=== PATIENT | male | born 1965 | race Caucasian/White ===

== ENCOUNTER 2016-04-14 09:33 | Emergency (ER) | payer OTHER ==
[~2016-04-14] VITALS: Ht 172.7 cm; Wt 78.5 kg
[~2016-04-14 09:33] MED LIST: AMOXICILLIN500 M3 PO; AMOXICILLIN500 MG PO; ATIVAN0.5 MG PO; BACLOFEN10 M1 PO; CELEXA40 MG PO; CHANTIX 1 MG1 MG PO; CITALOPRAM20 MG PO; CLONAZEPAM0.5 M2 PO; CLONAZEPAM0.5 MG PO; CYCLOBENZAPRINE10 M1 PO; DULOXETINE HCL60 MG PO; ENDOCET 325 MG-1 TA1 PO; FLEXERIL PO; FLEXERIL10 MG PO; FLONASE ALLERG9.9 ML NAS; HYDROCODONE/ACE1 TA1 PO; HYDROCODONE/APA1 TA1 PO; IBUPROFEN200 M3 PO; IBUPROFEN800 M1 PO; KETOCONAZOLE 2%30 GM TOP; LIPITOR20 M2 PO; MEDROL4 M2 PO; METOPROLOL SUCC25 M1 PO; MOTRIN800 MG PO; NASONEX0.05 MG/Ac NAS; NASONEX17 GM NASB; NORCO 325 MG-51 TAB PO; NORCO 5-325 TA1 EACH PO; OMEPRAZOLE40 MG PO; OXYCODONE HCL5 M1 PO; OXYCODONE5 M1 PO; PERCOCET 5-3251 EACH PO; PREDNICOT10 MG PO; RANITIDINE HYD150 MG PO; TRAMADOL50 MG PO; TYLENOL WITH C1 EACH PO; VICODIN 300 MG-1 TAB PO; VICODIN 5-3001 EACH PO; VICODIN5-300 PO; VISTARIL50 MG PO; WARFARIN SODIUM5 M1 PO; ZITHROMAX Z-PA250 M1 PO
[2016-04-14 09:36] VITALS: BP 125/83
--- NOTE | 2016-04-14 09:49 | ED THROAT/DENTAL COMPLAINT ---
History of Present Illness General Chief Complaint: Sore Throat, Dental Pain Stated Complaint: ? GUM INFECTION Source: patient, old records Exam Limitations: no limitations Vital Signs & Intake/Output Vital Signs & Intake/Output Vital Signs Date Time Temp Pulse Resp B/P Pulse O2 O2 Flow FiO2 Ox Delivery Rate 04/14 0936 97.6 96 18 125/83 98 Room Air Allergies Coded Allergies: tramadol (JITTERY 12/11/15) Reconcile Medications Amoxicillin 500 MG TABLET 1 TAB PO BID TOOTH PAIN Amoxicillin/Potassium Clav (Augmentin 875-125 Tablet) 875 MG-125 MG TABLET 1 TAB PO BID dental Atorvastatin Calcium (Lipitor) 20 MG TABLET 20 MG PO AT BEDTIME CHOLOSTEROL ( Reported) Clonazepam 0.5 MG TAB 1 TAB PO BID ANXIETY (Reported) Cyclobenzaprine HCl 10 MG TABLET 1 TAB PO TID PRN PAIN (Reported) Cyclobenzaprine HCl 10 MG TABLET 1 TAB PO TID PRN SPASM Duloxetine HCl 60 MG CAPSULE.DR 1 CAP PO DAILY DEPRESSION (Reported) Methylprednisolone. (Medrol) 4 MG TAB.DS.PK 1 DP PO AD BACK PAIN 6 on day 1 then reduce by one tablet daily until gone Metoprolol Succinate 25 MG TAB 1 TAB PO TID HEART (Reported) Mometasone Furoate (Nasonex) 50 MCG SPRAY.PUMP 2 SPRAY NASB DAILY ALLERGIES ( Reported) Oxycodone HCl/Acetaminophen (Percocet 5-325 MG Tablet) 5 MG-325 MG TABLET 1 TAB PO TID PRN pain Warfarin Sodium 5 MG TABLET 0.5 TAB PO 1700 BLOOD THINNER (Reported) Triage Note: 50 Y/O MALE C/O DENTAL PAIN AND ? GUM INFECTION. STATES HE IS UNABLE TO SEE HIS DENTIST UNTIL NEXT WEEK, Triage Nurses Notes Reviewed? yes Onset: Abrupt Duration: day(s): (2), constant Timing: recent history Injury Environment: home Severity: moderate Severity Numbers: 6 Modifying Factors: Worsens With: eating. Associated Symptoms: denies HPI: 50-year-old male presents to emergency room complaining of left upper dental pain for the past 2 days he states he had history of similar symptoms in the past that resolved with antibiotics. He states he is scheduled to see a dentist next week. The pain is worse with palpation, he has been taking Tylenol Motrin without improvement. The pain is radiating into his left upper cheek. He denies any facial swelling or difficulty breathing or difficulty swallowing. No fever no chills There are no other modifying factors or associated symptoms otherwise. (LUIS MANUEL BRO) Past History Travel History Traveled to [place] past 21 day No Medical History Any Pertinent Medical History? 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 No (LUIS MANUEL BRO) Review of Systems Review of Systems Constitutional: Reports: see HPI. All Other Systems: Reviewed and Negative Comments Review of systems: See HPI, All other systems negative. Constitutional, no chills no fever, no malaise HEENT: No visual changes no sore throat no congestion, Cardiovascular: No chest pain , no palpitation , Skin, no rashes, no change in skin Respiratory: No dyspnea no cough no sputum GI: No nausea no vomiting, no diarrhea : No dysuria Muscle skeletal: No joint pain, no back pain, no neck pain, Neurologic: no headache Psych: No stress Heme/endocrine: No bruising no bleeding Immunology: No lymphadenopathy, (LUIS MANUEL BRO) Physical Exam Physical Exam General Appearance: well developed/nourished, alert, awake Mouth/Throat: normal mouth inspection Comments: Well-developed well-nourished patient in no apparent distress. Head/Face: Atraumatic, no maxillary/frontal sinus tenderness, no facial swelling Eyes: PERRL, EOMI, no conjunctival injection Ear:External auditory canals clear Nose: atraumatic.Normal inspection Throat: Moist mucous membranes.Pharynx normal. No pharyngeal erythema/exudate seen. No stridor/drooling or assymetry. No swelling or edema. Neck: Supple, no lymphadenopathy, FROM Back: FROM, Nontender Cardiovascular: Regular rate and rhythms no murmurs Respiratory: No respiratory distress. Patient speaking in full complete sentences. Breath sounds clear to auscultation bilaterally: NO W/R/R Extremities: full range of motion Neuro: Alert and oriented x3 Skin: Warm & dry;No appreciable rash on exposed skin Psych: Mood affect normal, normal memory normal judgment. Core Measures ACS in differential dx? No Severe Sepsis Present: No Septic Shock Present: No (LUIS MANUEL BRO) Progress Differential Diagnosis: carious tooth, epiglottitis, odontogenic abscess, nazanin- tonsillar abscess, stomatitis/gingivitis, tooth fracture Plan of Care: Prescription for Augmentin providing a follow-up with dental clinic list provided he feels comfortable plan cleared for discharge (LUIS MANUEL BRO) Departure Departure Time of Disposition: 953 Disposition: HOME OR SELF CARE Condition: Stable Clinical Impression Primary Impression: Toothache Referrals: ERIKA GRAJEDA,KRYSTYNA Carter (PCP/Family) Additional Instructions: Augmentin as directed Percocet for breakthrough pain use caution as this is a narcotic no driving or drinking alcohol while taking. These prescriptions were sent to the [place] pharmacy follow-up with your dentist next week Departure Forms: Customer Survey General Discharge Information Prescriptions: Current Visit Scripts Oxycodone HCl/Acetaminophen (Percocet 5-325 MG Tablet) 1 TAB PO TID PRN pain #10 TAB Amoxicillin/Potassium Clav (Augmentin 875-125 Tablet) 1 TAB PO BID #14 TAB (LUIS MANUEL BRO) PA/WRAPAROUND FACILITATOR Co-Sign Statement Statement: ED Attending supervision documentation- [] I saw and evaluated the patient. I have also reviewed all the pertinent lab results and diagnostic results. I agree with the findings and the plan of care as documented in the PA's/WRAPAROUND FACILITATOR's documentation. [X] I have reviewed the ED Record and agree with the PA's/WRAPAROUND FACILITATOR's documentation. [] Additions or exceptions (if any) to the PAs/WRAPAROUND FACILITATOR's note and plan are summarized below: [] (LULU PETER DO)
[2016-04-14] MEDS ORDERED: AUGMENTIN 875-1 EACH PO (09:55)
[2016-04-14] MEDS ORDERED: PERCOCET 5-3251 EACH PO (09:55)
== END 2016-04-14 10:00 ==
LOC: ERH 09:33
DX: K08.89 Other specified disorders of teeth and supporting structures (principal)

== ENCOUNTER 2016-05-12 14:15 | Emergency (ER) | payer OTHER ==
[~2016-05-12] VITALS: Ht 172.7 cm; Wt 78.0 kg
[~2016-05-12 14:15] MED LIST changes: +AUGMENTIN 875-1 EACH PO
[2016-05-12] MEDS ORDERED: PERCOCET 5-3251 EACH PO (14:50)
[2016-05-12] MEDS ORDERED: AMOXICILLIN500 M3 PO (14:50)
--- NOTE | 2016-05-12 14:51 | ED THROAT/DENTAL COMPLAINT ---
History of Present Illness General Chief Complaint: Sore Throat, Dental Pain Stated Complaint: DENTAL PAIN Source: patient Exam Limitations: no limitations Vital Signs & Intake/Output Vital Signs & Intake/Output Vital Signs Date Time Temp Pulse Resp B/P Pulse O2 O2 Flow FiO2 Ox Delivery Rate 05/12 1424 Room Air Room Air Allergies Coded Allergies: tramadol (JITTERY 12/11/15) Reconcile Medications Amoxicillin 500 MG TABLET 1 TAB PO BID TOOTH PAIN Amoxicillin 500 MG TABLET 1 TAB PO BID TOOTH PAIN Amoxicillin/Potassium Clav (Augmentin 875-125 Tablet) 875 MG-125 MG TABLET 1 TAB PO BID dental Atorvastatin Calcium (Lipitor) 20 MG TABLET 20 MG PO AT BEDTIME CHOLOSTEROL ( Reported) Clonazepam 0.5 MG TAB 1 TAB PO BID ANXIETY (Reported) Cyclobenzaprine HCl 10 MG TABLET 1 TAB PO TID PRN PAIN (Reported) Cyclobenzaprine HCl 10 MG TABLET 1 TAB PO TID PRN SPASM Duloxetine HCl 60 MG CAPSULE.DR 1 CAP PO DAILY DEPRESSION (Reported) Methylprednisolone. (Medrol) 4 MG TAB.DS.PK 1 DP PO AD BACK PAIN 6 on day 1 then reduce by one tablet daily until gone Metoprolol Succinate 25 MG TAB 1 TAB PO TID HEART (Reported) Mometasone Furoate (Nasonex) 50 MCG SPRAY.PUMP 2 SPRAY NASB DAILY ALLERGIES ( Reported) Oxycodone HCl/Acetaminophen (Percocet 5-325 MG Tablet) 5 MG-325 MG TABLET 1-2 TAB PO BID PAIN Oxycodone HCl/Acetaminophen (Percocet 5-325 MG Tablet) 5 MG-325 MG TABLET 1 TAB PO TID PRN pain Warfarin Sodium 5 MG TABLET 0.5 TAB PO 1700 BLOOD THINNER (Reported) Triage Note: PT TO ED WITH C/O "I'M HAVING PROBLEMS WITH MY DENTAL CROWN, LAST TIME THEY GAVE ME ANTIBIOTICS AND IT WENT AWAY". Triage Nurses Notes Reviewed? yes Onset: Abrupt Duration: day(s):, continues in ED Timing: recent history Injury Environment: home No Modifying Factors: none HPI: 50-year-old male comes into emergency room with complaints of left upper dental pain has been going on for the past few days. Patient has been having dental pain issues intermittently for many weeks. Sharp throbbing pain. Continuous. Nonradiating. Denies any fever chills. Denies any other associated symptoms. (APOLLO MENDENHALL) Past History Travel History Traveled to [place] past 21 day No Medical History Any Pertinent Medical History? 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 No (APOLLO MENDENHALL) Review of Systems Review of Systems Constitutional: Reports: no symptoms. EENTM: Reports: see HPI. Respiratory: Reports: no symptoms. Cardiovascular: Reports: no symptoms. GI: Reports: no symptoms. Genitourinary: Reports: no symptoms. Musculoskeletal: Reports: no symptoms. Skin: Reports: no symptoms. Neurological/Psychological: Reports: no symptoms. Hematologic/Endocrine: Reports: no symptoms. Immunologic/Allergic: Reports: no symptoms. All Other Systems: Reviewed and Negative (APOLLO MENDENHALL) Physical Exam Physical Exam General Appearance: well developed/nourished, no apparent distress, alert Head: atraumatic, normal appearance Eyes: Bilateral: normal appearance, EOMI. Ears: Bilateral: canal normal. Nose: normal inspection Mouth/Throat: normal mouth inspection, pharynx normal, dental tenderness Neck: normal inspection, full range of motion Cardiovascular/Respiratory: normal breath sounds, regular rate/rhythm, no respiratory distress Back: normal inspection Neurologic/Psych: awake, alert, oriented x 3, normal gait, normal mood/affect Skin: intact, normal color Core Measures ACS in differential dx? No Severe Sepsis Present: No Septic Shock Present: No (APOLLO MENDENHALL) Progress Differential Diagnosis: aspirated tooth, carious tooth, epiglottitis, Ludwigs angina, meningitis, odontogenic abscess, nazanin-tonsillar abscess, pharyngeal for. body, stomatitis/gingivitis, strep pharyngitis, tooth fracture Plan of Care: 05/12/2016 4:05:25 PM Patient clinically looks well. Nontoxic-appearing. In no apparent distress. No evidence of dental abscess. Follow-up with dentist. Return if any other concerns. (APOLLO MENDENHALL) Departure Departure Disposition: HOME OR SELF CARE Condition: Stable Clinical Impression Primary Impression: Odontalgia Referrals: ERIKA GRAJEDA,KRYSTYNA Carter (PCP/Family) Additional Instructions: Take Percocet and amoxicillin as prescribed. Follow-up with dentist. Return if any concerns worsening symptoms. Have INR rechecked in 3-5 days after being on amoxicillin. Please go over all results of today's visit with your primary care doctor. Contact your primary care doctor to let them know you were here in the emergency room. There may be nonspecific findings which may not be related to your visit today here in the emergency room but may require further evaluation and chronic monitoring by your primary care doctor. If you had a laceration today the chance of foreign body always remains. You should follow-up with your primary care doctor for recheck in 3-5 days for a wound check. If you had an x-ray done there is a chance that a fracture could have been missed on initial read and you should follow-up with your primary care doctor for repeat x-rays if symptoms persist. If your blood pressure was elevated here in the emergency room please have rechecked by her primary care doctor within the next 48 hours by your primary care doctor. If you were prescribed a narcotic here in the emergency room or any type of controlled substances you're not allowed to drive while taking this medication or operate any type of heavy machinery. Narcotics can make you feel lightheaded dizziness nausea and can cause constipation. You may need to warehouse order picker a stool softener. Thank you for choosing [facility] emergency room. Please return to the emergency room immediately if you have any other concerns worsening of symptoms. Departure Forms: Customer Survey General Discharge Information Prescriptions: Current Visit Scripts Amoxicillin 1 TAB PO BID #20 TAB Oxycodone HCl/Acetaminophen (Percocet 5-325 MG Tablet) 1-2 TAB PO BID #10 TAB (APOLLO MENDENHALL) PA/BOAT ENGINES INSTALLER Co-Sign Statement Statement: ED Attending supervision documentation- [] I saw and evaluated the patient. I have also reviewed all the pertinent lab results and diagnostic results. I agree with the findings and the plan of care as documented in the PA's/BOAT ENGINES INSTALLER's documentation. [X] I have reviewed the ED Record and agree with the PA's/BOAT ENGINES INSTALLER's documentation. [] Additions or exceptions (if any) to the PAs/BOAT ENGINES INSTALLER's note and plan are summarized below: [] (LULU PETER DO)
== END 2016-05-12 15:04 ==
LOC: ERH 14:15
DX: K08.89 Other specified disorders of teeth and supporting structures (principal)

== ENCOUNTER 2016-05-24 09:25 | Emergency (ER) | payer OTHER ==
[~2016-05-24] VITALS: Ht 172.7 cm; Wt 78.5 kg
[2016-05-24 09:36] VITALS: BP 131/88
--- NOTE | 2016-05-24 09:44 | ED THROAT/DENTAL COMPLAINT ---
History of Present Illness General Chief Complaint: Sore Throat, Dental Pain Stated Complaint: REQ PAIN MED FOR TEETH Source: patient Exam Limitations: no limitations Vital Signs & Intake/Output Vital Signs & Intake/Output Vital Signs Date Time Temp Pulse Resp B/P Pulse O2 O2 Flow FiO2 Ox Delivery Rate 05/24 0936 98.2 96 20 131/88 95 Room Air Allergies Coded Allergies: tramadol (JITTERY 12/11/15) Reconcile Medications Atorvastatin Calcium (Lipitor) 20 MG TABLET 1 TAB PO DAILY CHOLESTEROL ( Reported) Clonazepam 0.5 MG TABLET 1 TAB PO BID ANXIETY (Reported) Cyclobenzaprine HCl 10 MG TABLET 1 TAB PO TID PRN SPASM Duloxetine HCl 60 MG CAPSULE.DR 1 CAP PO DAILY DEPRESSION (Reported) Ketorolac Tromethamine 10 MG TABLET 1 TAB PO TID PRN PAIN Metoprolol Succinate 25 MG TAB 1 TAB PO TID HEART (Reported) Mometasone Furoate (Nasonex) 50 MCG SPRAY.PUMP 2 SPRAY NASB DAILY ALLERGIES ( Reported) Oxycodone HCl/Acetaminophen (Percocet 5-325 MG Tablet) 5 MG-325 MG TABLET 1-2 TAB PO BID PAIN Warfarin Sodium 5 MG TABLET 0.5 TAB PO 1700 BLOOD THINNER (Reported) Triage Note: PT C/O DENTAL PAIN. DOESN'T HAVE APPT UNTIL June Triage Nurses Notes Reviewed? yes Onset: Gradual Duration: constant Timing: remote history Severity: severe Severity Numbers: 7 HPI: Patient is a 50-year-old male with a past medical history of chronic pain and chronic dental pain where patient was evaluated last week for similar complaints in which she was prescribed amoxicillin and pain medication narcotics and patient presents again to the emergency room for similar complaints and requests a pain medications Patient states that he has a follow-up appointment with an oral surgeon and 2 weeks. Patient denies any new onset of fractures or etiology of NEW symptoms denies any fevers gum swelling and is otherwise without complaints. (LUIS MANUEL ROPER) Past History Travel History Traveled to [place] past 21 day No Medical History Any Pertinent Medical History? 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 No (LUIS MANUEL ROPER) Review of Systems Review of Systems Constitutional: Reports: no symptoms. EENTM: Reports: see HPI, tooth pain. Respiratory: Reports: no symptoms. Cardiovascular: Reports: no symptoms. GI: Reports: no symptoms. Genitourinary: Reports: no symptoms. Musculoskeletal: Reports: no symptoms. Skin: Reports: no symptoms. Neurological/Psychological: Reports: no symptoms. Hematologic/Endocrine: Reports: no symptoms. Immunologic/Allergic: Reports: no symptoms. All Other Systems: Reviewed and Negative (LUIS MANUEL ROPER) Physical Exam Physical Exam General Appearance: no apparent distress, alert Head: atraumatic Eyes: Bilateral: normal appearance, PERRL. Ears: Bilateral: canal normal, Tympanic normal. Nose: normal inspection Mouth/Throat: normal mouth inspection, pharynx normal, dental tenderness Neck: normal inspection, supple Back: normal inspection Neurologic/Psych: no motor/sensory deficits, awake Skin: intact, normal color Diagram Dental: 1) Normal inspection dental tenderness noted no surrounding gum swelling and no surrounding abscess Core Measures ACS in differential dx? No Severe Sepsis Present: No Septic Shock Present: No (LUIS MANUEL ROPER) Progress Differential Diagnosis: aspirated tooth, carious tooth, epiglottitis, Ludwigs angina, meningitis, odontogenic abscess, nazanin-tonsillar abscess, pharyngeal for. body, stomatitis/gingivitis, strep pharyngitis, tooth fracture Plan of Care: Current Medications Sig/Derick Start time Last Medication Dose Stop Time Status Admin Ketorolac 30 MG ONCE ONE 05/24 1000 UNVr Tromethamine 05/24 1001 (Toradol) Patient on physical exam findings showed no signs of peritonsillar abscess, abscess Patient was noted to have 2 narcotic prescriptions in the last 10 days in which patient was offered ketorolac Patient was strongly advised to follow-up with his oral surgeon however was given other sources for follow-up. No concerns of infection at this time (LUIS MANUEL ROPER) Departure Departure Disposition: HOME OR SELF CARE Condition: Stable Clinical Impression Primary Impression: Pain, dental Referrals: ERIKA GRAJEDA,KRYSTYNA Carter (PCP/Family) Additional Instructions: As discussed follow-up with your scheduled dental appointment as directed. Begin the prescription of ketorolac for pain and inflammation. Continue home medications. If symptoms worsen return to emergency room. Prescription is waiting at [place] pharmacy Departure Forms: Customer Survey General Discharge Information Prescriptions: Current Visit Scripts Ketorolac Tromethamine 1 TAB PO TID PRN PAIN #20 TAB (JUSTEN KIRK,LUIS MANUEL) PA/SHIP YARD ELECTRICAL PERSON Co-Sign Statement Statement: ED Attending supervision documentation- [] I saw and evaluated the patient. I have also reviewed all the pertinent lab results and diagnostic results. I agree with the findings and the plan of care as documented in the PA's/SHIP YARD ELECTRICAL PERSON's documentation. x I have reviewed the ED Record and agree with the PA's/SHIP YARD ELECTRICAL PERSON's documentation. [] Additions or exceptions (if any) to the PAs/SHIP YARD ELECTRICAL PERSON's note and plan are summarized below: [] (OKSANA GRAJEDA,TIO)
[2016-05-24] MEDS ORDERED: KETOROLAC TROME10 M1 PO (09:55)
== END 2016-05-24 09:55 ==
LOC: ERH 09:25
DX: K08.89 Other specified disorders of teeth and supporting structures (principal)
CPT/HCPCS: 96372; J1885

== ENCOUNTER 2016-06-14 10:32 | Emergency (ER) | payer OTHER ==
[~2016-06-14] VITALS: Ht 172.7 cm; Wt 78.0 kg
[~2016-06-14 10:32] MED LIST changes: +KETOROLAC TROME10 M1 PO
[2016-06-14 11:02] VITALS: BP 130/88
--- NOTE | 2016-06-14 12:02 | ED THROAT/DENTAL COMPLAINT ---
History of Present Illness General Chief Complaint: Sore Throat, Dental Pain Stated Complaint: DENTAL PAIN Source: patient, old records Exam Limitations: no limitations Vital Signs & Intake/Output Vital Signs & Intake/Output Vital Signs Date Time Temp Pulse Resp B/P Pulse O2 O2 Flow FiO2 Ox Delivery Rate 06/14 1102 97.4 83 16 130/88 96 Room Air Allergies Coded Allergies: tramadol (JITTERY 12/11/15) Reconcile Medications Atorvastatin Calcium (Lipitor) 20 MG TABLET 1 TAB PO DAILY CHOLESTEROL ( Reported) Clonazepam 0.5 MG TABLET 1 TAB PO BID ANXIETY (Reported) Cyclobenzaprine HCl 10 MG TABLET 1 TAB PO TID PRN SPASM Duloxetine HCl 60 MG CAPSULE.DR 1 CAP PO DAILY DEPRESSION (Reported) Hydrocodone/Acetaminophen ([place] 5-325 Tablet) 5 MG-325 MG TABLET 1 TAB PO Q4- 6 PRN PRN PAIN Hydrocodone/Acetaminophen ([place] 5-325 Tablet) 5 MG-325 MG TABLET 1 TAB PO Q4- 6 PRN PRN PAIN Ketorolac Tromethamine 10 MG TABLET 1 TAB PO TID PRN PAIN Metoprolol Succinate 25 MG TAB 1 TAB PO TID HEART (Reported) Mometasone Furoate (Nasonex) 50 MCG SPRAY.PUMP 2 SPRAY NASB DAILY ALLERGIES ( Reported) Oxycodone HCl/Acetaminophen (Percocet 5-325 MG Tablet) 5 MG-325 MG TABLET 1-2 TAB PO BID PAIN Warfarin Sodium 5 MG TABLET 0.5 TAB PO 1700 BLOOD THINNER (Reported) Triage Note: 50 Y/O MALE C/O DENTAL PAIN X PROCEDURE AT [facility]. STATES HE DID NOT CALL THEM. THINKS "I MESSED IT UP BECAUSE I SMOKE". STATES HE TOOK ADVIL THIS AM WITH NO RELIEF - 2 TABS AT 0500. Triage Nurses Notes Reviewed? yes Onset: Gradual Duration: week(s): (1), constant Timing: recent history Injury Environment: home Severity: moderate Severity Numbers: 6 Modifying Factors: Worsens With: eating. Associated Symptoms: denies HPI: 50-year-old male presents complaining of gradual in onset exacerbation of his chronic left upper dental pain. The patient had a tooth pulled at [place] one week ago at which time he was started on amoxicillin and was prescribed Percocet which he finished. He states that he stopped taking the antibiotics last week. He states since then he has had worsening pain. He denies any difficulty swallowing sore throat fever or chills gingival swelling or discharge from the tooth cavity. Denies any chest pain shortness of breath. Symptoms are worse with palpation and eating better at rest no associated symptoms otherwise no radiation of pain no facial swelling (LUIS MANUEL BRO) Past History Travel History Traveled to [place] past 21 day No Medical History Any Pertinent Medical History? 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 No (LUIS MANUEL BRO) Review of Systems Review of Systems Constitutional: Reports: see HPI. All Other Systems: Reviewed and Negative Comments Review of systems: See HPI, All other systems negative. Constitutional, no chills no fever, no malaise HEENT: No visual changes no sore throat no congestion Cardiovascular: No chest pain , no palpitation Skin, no rashes, no change in skin Respiratory: No dyspnea no cough no sputum GI: No nausea no vomiting, no diarrhea, no bloating/constipation : No dysuria Muscle skeletal: No joint pain, no joint swelling, no back pain Neurologic: No numbness no confusion, no headache Psych: No stress Heme/endocrine: No bruising no bleeding Immunology: No lymphadenopathy (LUIS MANUEL BRO) Physical Exam Physical Exam General Appearance: well developed/nourished, no apparent distress, alert, awake Mouth/Throat: pharynx normal, dental tenderness Comments: Well-developed well-nourished patient in no apparent distress. Head/Face: Atraumatic, no maxillary/frontal sinus tenderness, no facial swelling Eyes: PERRL, EOMI, no conjunctival injection Ear:External auditory canals clear, no erythema, no FB. Nose: atraumatic.Normal inspection Throat: Poor dentition multiple carious teeth, mild gingival swelling left upper no abscess Moist mucous membranes.Pharynx normal. No pharyngeal erythema/ exudate seen. No stridor/drooling or assymetry. No swelling or edema. Neck: Supple, no lymphadenopathy, FROM Back: FROM, Nontender Cardiovascular: Regular rate and rhythms no murmurs Respiratory: No respiratory distress. Patient speaking in full complete sentences. Breath sounds clear to auscultation bilaterally: NO W/R/R Extremities: full range of motion Neuro: Alert and oriented x3 Skin: Warm & dry;No appreciable rash on exposed skin Psych: Mood affect normal, normal memory normal judgment. Core Measures ACS in differential dx? No Severe Sepsis Present: No Septic Shock Present: No (LUIS MANUEL BRO) Progress Differential Diagnosis: Ludwigs angina, odontogenic abscess, nazanin-tonsillar abscess, stomatitis/gingivitis, strep pharyngitis, tooth fracture Plan of Care: Advise follow-up with dentist prescription for [place] provided advised to continue and finish course of amoxicillin as directed smoking cessation discussed the patient at length (LUIS MANUEL BRO) Departure Departure Time of Disposition: 1207 Disposition: HOME OR SELF CARE Condition: Stable Clinical Impression Primary Impression: Chronic dental pain Referrals: ERIKA GRAJEDA,KRYSTYNA Carter (PCP/Family) Additional Instructions: Follow-up with your dentist. Continue taking your antibiotics as prescribed. Vicodin for breakthrough pain this emergency room cannot continue to prescribe you narcotic pain medication this was sent to [place] [facility]. Departure Forms: Customer Survey General Discharge Information Prescriptions: Current Visit Scripts Hydrocodone/Acetaminophen ([place] 5-325 Tablet) 1 TAB PO Q4-6 PRN PRN PAIN #10 TAB Hydrocodone/Acetaminophen ([place] 5-325 Tablet) 1 TAB PO Q4-6 PRN PRN PAIN #10 TAB (LUIS MANUEL BRO) PA/COSMETIC COUNSELOR Co-Sign Statement Statement: ED Attending supervision documentation- [] I saw and evaluated the patient. I have also reviewed all the pertinent lab results and diagnostic results. I agree with the findings and the plan of care as documented in the PA's/COSMETIC COUNSELOR's documentation. x I have reviewed the ED Record and agree with the PA's/COSMETIC COUNSELOR's documentation. [] Additions or exceptions (if any) to the PAs/COSMETIC COUNSELOR's note and plan are summarized below: [] (OKSANA GRAJEDA,TIO)
[2016-06-14] MEDS ORDERED: NORCO 5-325 TA1 EACH PO ×2 (12:08→12:15)
== END 2016-06-14 12:14 ==
LOC: ERH 10:32
DX: G89.29 Other chronic pain (principal); K08.89 Other specified disorders of teeth and supporting structures

== ENCOUNTER 2016-07-10 14:38 | Emergency (ER) | payer OTHER ==
[~2016-07-10] VITALS: Ht 172.7 cm; Wt 78.0 kg
[2016-07-10 14:51] VITALS: BP 129/92
--- NOTE | 2016-07-10 16:44 | ED THROAT/DENTAL COMPLAINT ---
History of Present Illness General Chief Complaint: Sore Throat, Dental Pain Stated Complaint: DENTAL PAIN Source: patient, old records Exam Limitations: no limitations Vital Signs & Intake/Output Vital Signs & Intake/Output Vital Signs Date Time Temp Pulse Resp B/P Pulse O2 O2 Flow FiO2 Ox Delivery Rate 07/10 1451 97.5 91 18 129/92 95 Room Air Allergies Coded Allergies: tramadol (JITTERY 12/11/15) Reconcile Medications Atorvastatin Calcium (Lipitor) 20 MG TABLET 1 TAB PO DAILY CHOLESTEROL ( Reported) Clonazepam 0.5 MG TABLET 1 TAB PO BID ANXIETY (Reported) Cyclobenzaprine HCl 10 MG TABLET 1 TAB PO TID PRN SPASM Duloxetine HCl 60 MG CAPSULE.DR 1 CAP PO DAILY DEPRESSION (Reported) Hydrocodone/Acetaminophen ([place] 5-325 Tablet) 5 MG-325 MG TABLET 1 TAB PO Q4- 6 PRN PRN PAIN Hydrocodone/Acetaminophen ([place] 5-325 Tablet) 5 MG-325 MG TABLET 1 TAB PO Q4- 6 PRN PRN PAIN Hydrocodone/Acetaminophen (Vicodin 5-300 MG Tablet) 5 MG-300 MG TABLET 1 TAB PO Q6 PRN pain Ketorolac Tromethamine 10 MG TABLET 1 TAB PO TID PRN PAIN Metoprolol Succinate 25 MG TAB 1 TAB PO TID HEART (Reported) Mometasone Furoate (Nasonex) 50 MCG SPRAY.PUMP 2 SPRAY NASB DAILY ALLERGIES ( Reported) Oxycodone HCl/Acetaminophen (Percocet 5-325 MG Tablet) 5 MG-325 MG TABLET 1-2 TAB PO BID PAIN Warfarin Sodium 5 MG TABLET 0.5 TAB PO 1700 BLOOD THINNER (Reported) Triage Note: C/O DENTAL PAIN WITH HIS LAST TOOTH, LEFT UPPPER TOOTH PAIN RADIATING TO CHEEK PT WAS SCHEDULED TO HAVE IT TAKEN OUT BUT DUE TO INSURANCE REASONS HE CANNOT. Triage Nurses Notes Reviewed? yes HPI: Patient is for 10-year-old male presents complaining of left upper dental pain. Patient reports that he had a dental procedure last month, scheduled to have a tooth extracted in the area but lost his dental insurance. Pain increasing over the past 2 days. Pain is sharp, currently severe, worse with palpation. Patient denies fevers, chills, facial swelling, difficulty swallowing. (KEN KIRK,IVANNA) Past History Travel History Traveled to [place] past 21 day No Medical History Any Pertinent Medical History? 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 No (IVANNA ANTONIO) Review of Systems Review of Systems Constitutional: Denies: chills, fever. EENTM: Reports: see HPI, tooth pain. Respiratory: Denies: cough, short of breath. GI: Denies: nausea, vomiting. Musculoskeletal: Reports: no symptoms. Skin: Reports: no symptoms. Neurological/Psychological: Reports: headache. Hematologic/Endocrine: Reports: no symptoms. Immunologic/Allergic: Reports: no symptoms. (IVANNA ANTONIO) Physical Exam Physical Exam General Appearance: well developed/nourished, alert, awake Head: atraumatic, normal appearance Eyes: Bilateral: normal appearance, PERRL, EOMI. Nose: normal inspection Mouth/Throat: pharynx normal, see diagram Neck: normal inspection, supple, full range of motion Cardiovascular/Respiratory: no respiratory distress Back: normal inspection, normal range of motion Neurologic/Psych: awake, alert, oriented x 3, normal gait, normal mood/affect Skin: intact, normal color, warm/dry Diagram Dental: 1) previous dental extraction. Mild tenderness to the area. no gingival erythema or swelling. Core Measures ACS in differential dx? No Severe Sepsis Present: No Septic Shock Present: No (IVANNA ANTONIO) Progress Differential Diagnosis: carious tooth, odontogenic abscess, tooth fracture Plan of Care: No signs of dental abscess. Previous records reviewed. I discussed with the patient that we cannot continue to prescribe opiate pain medications from the emergency department for him. A short course of pain medication was prescribed and a list of dental clinics provided. (IVANNA ANTONIO) Departure Departure Time of Disposition: 1651 Disposition: HOME OR SELF CARE Condition: Stable Clinical Impression Primary Impression: Pain, dental Referrals: ERIKA GRAJEDA,KRYSTYNA Carter (PCP/Family) Additional Instructions: Follow up with one of the dental clinics listed in your discharge paperwork. Call tomorrow for appointment. Return to the ER if facial swelling, fevers or worsening of symptoms. Departure Forms: Customer Survey General Discharge Information Prescriptions: Current Visit Scripts Hydrocodone/Acetaminophen (Vicodin 5-300 MG Tablet) 1 TAB PO Q6 PRN pain #10 TAB (IVANNA ANTONIO) PA/WEAVING SUPERVISOR Co-Sign Statement Statement: ED Attending supervision documentation- [] I saw and evaluated the patient. I have also reviewed all the pertinent lab results and diagnostic results. I agree with the findings and the plan of care as documented in the PA's/WEAVING SUPERVISOR's documentation. [X] I have reviewed the ED Record and agree with the PA's/WEAVING SUPERVISOR's documentation. [] Additions or exceptions (if any) to the PAs/WEAVING SUPERVISOR's note and plan are summarized below: [] (LULU PETER DO
[2016-07-10] MEDS ORDERED: VICODIN 5-3001 EACH PO (16:54)
== END 2016-07-10 17:00 ==
LOC: ERH 14:38
DX: K08.89 Other specified disorders of teeth and supporting structures (principal)

== ENCOUNTER 2016-09-23 20:52 | Emergency (ER) | payer OTHER ==
--- NOTE | 2016-09-23 21:21 | ED CARDIAC/CP/PALPITATIONS ---
History of Present Illness General Chief Complaint: General Adult Stated Complaint: PT HAS PAIN AROUND HIS SURGEY PICKING UP BAGS Source: patient, old records Exam Limitations: no limitations Vital Signs & Intake/Output Vital Signs & Intake/Output Vital Signs Date Time Temp Pulse Resp B/P B/P Pulse O2 O2 Flow FiO2 Mean Ox Delivery Rate 09/23 2307 97.9 83 16 136/80 97 Room Air 09/239 97.0 84 22 126/80 98 Room Air ED Intake and Output 09/24 0000 09/23 1200 Intake Total Output Total Balance Patient 160 lb Weight Allergies Coded Allergies: tramadol (JITTERY 12/11/15) Reconcile Medications Atorvastatin Calcium (Lipitor) 20 MG TABLET 1 TAB PO DAILY CHOLESTEROL ( Reported) Baclofen 10 MG TABLET 1 TAB PO TIDPRN PRN muscle spasm/strain Clonazepam 0.5 MG TABLET 1 TAB PO BID ANXIETY (Reported) Cyclobenzaprine HCl 10 MG TABLET 1 TAB PO TID PRN SPASM Duloxetine HCl 60 MG CAPSULE.DR 1 CAP PO DAILY DEPRESSION (Reported) Hydrocodone/Acetaminophen ([place] 5-325 Tablet) 5 MG-325 MG TABLET 1 TAB PO Q4- 6 PRN PRN PAIN Hydrocodone/Acetaminophen ([place] 5-325 Tablet) 5 MG-325 MG TABLET 1 TAB PO Q4- 6 PRN PRN PAIN Hydrocodone/Acetaminophen (Vicodin 5-300 MG Tablet) 5 MG-300 MG TABLET 1 TAB PO Q6 PRN pain Ketorolac Tromethamine 10 MG TABLET 1 TAB PO TID PRN PAIN Metoprolol Succinate 25 MG TAB 1 TAB PO TID HEART (Reported) Mometasone Furoate (Nasonex) 50 MCG SPRAY.PUMP 2 SPRAY NASB DAILY ALLERGIES ( Reported) Oxycodone HCl/Acetaminophen (Percocet 5-325 MG Tablet) 5 MG-325 MG TABLET 1-2 TAB PO BID PAIN Oxycodone HCl/Acetaminophen (Percocet 5-325 MG Tablet) 5 MG-325 MG TABLET 1-2 TAB PO 4 TIMES/DAY PRN pain Warfarin Sodium 5 MG TABLET 0.5 TAB PO 1700 BLOOD THINNER (Reported) Core Measure Meds Pre-Hospital coumadin Triage Note: PER PT HAD OPEN HEART IN August PAIN ACROSS CHEST NOT DEEP FEELS MUSCULAR BUT LIFTED SOME BAGS AND HAS HAD PAIN SINCE. Triage Nurses Notes Reviewed? yes Onset: 3 days Duration: day(s):, constant, continues in ED Timing: recent history Quality/Severity: moderate, aching Location: central Radiation: no radiation Activities at Onset: activity Prior Chest Pain/Card Workup: cardiac cath, echocardiography, stress test Modifying Factors: Worsens With: coughing, exercise, movement, palpation. Nitro Today/Relief: no nitro taken today Aspirin Today: no aspirin today HPI: Several days prior to admission patient has had increasing upper chest pain described as sharp occurring with lifting movement of upper extremities nonradiating. 3 days prior to admission he reports having cardiology evaluation with echocardiogram that was normal. He denies fever chills nausea vomiting diarrhea abdominal pain shortness of breath headache dysuria rash bleeding. Past History Travel History Traveled to [place] past 21 day No Medical History Any Pertinent Medical History? 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 No Review of Systems Review of Systems Constitutional: Reports: no symptoms. EENTM: Reports: no symptoms. Respiratory: Reports: no symptoms. Cardiovascular: Reports: see HPI, chest pain. GI: Reports: no symptoms. Genitourinary: Reports: no symptoms. Musculoskeletal: Reports: no symptoms. Skin: Reports: no symptoms. Neurological/Psychological: Reports: no symptoms. Hematologic/Endocrine: Reports: no symptoms. Immunologic/Allergic: Reports: no symptoms. All Other Systems: Reviewed and Negative Physical Exam Physical Exam General Appearance: well developed/nourished, alert, awake, anxious, mild distress, thin Head: atraumatic, normal appearance Eyes: Bilateral: normal appearance, PERRL, EOMI. Ears, Nose, Throat: normal pharynx, normal ENT inspection Neck: normal inspection, supple, full range of motion Respiratory: normal breath sounds, no respiratory distress, quiet respiration, lungs clear, pectoralis and sternal tenderness Cardiovascular: regular rate/rhythm, normal peripheral pulses, norml femoral pulses equa Peripheral Pulses: 4+ carotid (R), 4+ carotid (L) Gastrointestinal: normal bowel sounds, soft, non-tender, no organomegaly Back: normal inspection, normal range of motion Extremities: normal inspection, normal capillary refill, normal range of motion, no edema Neurologic/Psych: no motor/sensory deficits, awake, alert, oriented x 3, normal gait, normal mood/affect Reflexes: 2+: bicep (R), bicep (L). Skin: intact, normal color, warm/dry Lymphatic: no anterior cervical bebo Core Measures ACS in differential dx? Yes ASA ordered for poss ACS? No-ACS ruled out Severe Sepsis Present: No Septic Shock Present: No Progress Differential Diagnosis: AMI, costochondritis, hyperkalemia, musculoskeletal pain , pneumonia Plan of Care: Orders Procedure Date/time Status TROPONIN LEVEL 09/23 2117 Complete PROTHROMBIN TIME 09/23 2117 Complete COMPREHENSIVE METABOLIC PANEL 09/23 2117 Complete CBC WITHOUT DIFFERENTIAL 09/23 2117 Complete EKG 09/23 2099 Active Laboratory Tests 09/23/16 2145: Anion Gap 10, Estimated GFR > 60, BUN/Creatinine Ratio 18.0, Glucose 101 H, Calcium 9.2, Total Bilirubin 0.8, AST 33, ALT 39, Alkaline Phosphatase 70, Troponin I 0.02, Total Protein 7.5, Albumin 3.8, Globulin 3.7, Albumin/Globulin Ratio 1.0 L, PT 30.2 H, INR 2.91 H, CBC w Diff NO MAN DIFF REQ, RBC 4.84, MCV 75.2 L, MCH 23.8 L, RDW 19.3 H, MPV 9.1, Gran % 71.3, Lymphocytes % 16.5 L, Monocytes % 9.4 H, Eosinophils % 2.3, Basophils % 0.5, Absolute Granulocytes 8.4 H, Absolute Lymphocytes 2.0, Absolute Monocytes 1.1 H, Absolute Eosinophils 0.3, Absolute Basophils 0.1, PUBS MCHC 31.6 L Diagnostic Imaging: Viewed by Me: Radiology Read. Discussed w/RAD: Radiology Read. CXR Impression: 1. 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 There is also evidence of interval valvular replacement. The patient reportedly had repair of the aortic valve as well as mitral and tricuspid valve replacements. Of note, on lateral view of the chest, one of the valvular devices appears discontinuous ( the most anterior valvular device). This is of unknown acuity. Given lack of recent chest x-rays for comparison, consider correlation with a dedicated chest CT and echocardiogram. 2. Opacities along the right paramediastinal region. This is entirely nonspecific. This may also be evaluated on chest CT. 3. Minimal blunting of the right costophrenic angle, suggestive of small right-sided pleural fluid. Initial ED EKG: normal axis, normal intervals, normal p-waves, normal QRS complex, normal sinus rhythm, nonspecific ST T wave chg Rhythm Strip: normal sinus rhythm Comments: Patient declined CT as he had recent echocardiogram. Departure Departure Time of Disposition: 12 Disposition: HOME OR SELF CARE Condition: Stable Clinical Impression Primary Impression: Chest wall pain following surgery Referrals: ERIKA GRAJEDA,KRYSTYNA Carter (PCP/Family) Additional Instructions: Limit your lifting as directed by your doctors. Departure Forms: Customer Survey General Discharge Information Prescriptions: Current Visit Scripts Baclofen 1 TAB PO TIDPRN PRN muscle spasm/strain #30 TAB Oxycodone HCl/Acetaminophen (Percocet 5-325 MG Tablet) 1-2 TAB PO 4 TIMES/DAY PRN pain #20 TAB Critical Care Note Critical Care Note Critical Care Time: non-applicable
[2016-09-23 22:04] LABS: ABSOLUTE BASOPHIL COUNT 0.1 /CUMM (0.0-0.2); ABSOLUTE EOSINOPHIL COUNT 0.3 /CUMM (0.0-0.7); ABSOLUTE GRANULOCYTE CT 8.4 /CUMM (1.4-6.5); ABSOLUTE MONOCYTE COUNT 1.1 /CUMM (0.10-0.60); BASOPHIL % 0.5 % (0.0-2.0); EOSINOPHIL % 2.3 % (0-5); GRANULOCYTE % 71.3 % (42.2-75.2); HEMATOCRIT 36.4 % (42-52); MEAN CORPUSCULAR HGB 23.8 PG (27.0-31.0); MEAN CORPUSCULAR HGB CONC 31.6 G/DL (33.0-37.0); MEAN CORPUSCULAR VOLUME 75.2 FL (80.0-94.0); MEAN PLATELET VOLUME 9.1 FL (7.4-10.4); PLATELET COUNT 212 /CUMM (130-400); RBC DISTRIBUTION WIDTH 19.3 % (11.5-14.5); RED BLOOD CELL CT 4.84 /CUMM (4.70-6.10); WHITE BLOOD CELL COUNT 11.9 /CUMM (4.8-10.8)
--- NOTE | 2016-09-23 22:04 | RADIOLOGY REPORT ---
EXAMINATION: XR CHEST CLINICAL INFORMATION: Chest pain. Status post CABG and TVR. COMPARISON: Chest x-ray 05/21/2008. Plain films of the chest and right-sided RIBS 01/07/2016. TECHNIQUE: 2 views of the chest were obtained. FINDINGS: PA and lateral views of the chest demonstrate median sternotomy wires and findings indicative of interval CABG. There are also findings indicative of interval TAVR. On lateral view, the more anterior valvular device appears discontinuous. The more posterior fossa is a device appears to be grossly intact. There is an additional cardiac device more superiorly within the heart on lateral view of the chest. Evaluation of the lung parenchyma demonstrates airspace opacities within the right perihilar region. There is minimal blunting of the right costophrenic angle, which may reflect a small right-sided pleural effusion. There is also mild coarsening of the bilateral lung bases. No dense airspace consolidation is identified. Soft tissues appear unremarkable. IMPRESSION: 1. 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 There is also evidence of interval valvular replacement. The patient reportedly had repair of the aortic valve as well as mitral and tricuspid valve replacements. Of note, on lateral view of the chest, one of the valvular devices appears discontinuous (the most anterior valvular device). This is of unknown acuity. Given lack of recent chest x-rays for comparison, consider correlation with a dedicated chest CT and echocardiogram. 2. Opacities along the right paramediastinal region. This is entirely nonspecific. This may also be evaluated on chest CT. 3. Minimal blunting of the right costophrenic angle, suggestive of small right-sided pleural fluid. This critical result was discussed with Dr. Praneeth Henderson at 10:00 PM on 09/23/2016 and it was ascertained that the content and urgency of the report was understood at the time of direct communication.
[2016-09-23 23:09] LABS: PT 30.2 SEC (9.4-12.5)
[2016-09-24] MEDS ORDERED: PERCOCET 5-3251 EACH PO (00:21)
[2016-09-24] MEDS ORDERED: BACLOFEN10 M1 PO (00:21)
[2016-09-24 00:29] VITALS: BP 130/79
== END 2016-09-24 00:30 ==
LOC: ERH 20:52
PROVIDERS: Emergency Medicine
DX: R07.89 Other chest pain (principal)
CPT/HCPCS: 93005; 93010; 96374; 96375; J3360

== ENCOUNTER 2016-11-04 11:56 | Emergency (ER) | payer OTHER ==
[~2016-11-04] VITALS: Ht 172.7 cm; Wt 77.1 kg
[~2016-11-04 11:56] MED LIST changes: +MOBIC7.5 M1 PO
[2016-11-04 12:05] VITALS: BP 138/82
[2016-11-04] MEDS ORDERED: BACLOFEN10 M1 PO (12:39)
[2016-11-04] MEDS ORDERED: KEFLEX500 M1 PO (12:39)
--- NOTE | 2016-11-04 12:40 | ED SKIN/ALLERGY COMPLAINT ---
History of Present Illness General Chief Complaint: Suture Removal/Wound Recheck Stated Complaint: ?INFECTED INCISION ON CHEST Source: patient Exam Limitations: no limitations Vital Signs & Intake/Output Vital Signs & Intake/Output Vital Signs Date Time Temp Pulse Resp B/P B/P Pulse O2 O2 Flow FiO2 Mean Ox Delivery Rate 11/04 1205 97.9 96 18 138/82 95 Room Air Allergies Coded Allergies: tramadol (JITTERY 12/11/15) Reconcile Medications Atorvastatin Calcium (Lipitor) 20 MG TABLET 1 TAB PO DAILY CHOLESTEROL ( Reported) Baclofen 10 MG TABLET 1 TAB PO TID back pain Baclofen 10 MG TABLET 1 TAB PO TIDPRN PRN muscle spasm/strain Cephalexin (Keflex) 500 MG CAPSULE 1 CAP PO TID cellulitis Clonazepam 0.5 MG TABLET 1 TAB PO BID ANXIETY (Reported) Cyclobenzaprine HCl 10 MG TABLET 1 TAB PO TID SPASMS Cyclobenzaprine HCl 10 MG TABLET 1 TAB PO TID PRN SPASM Duloxetine HCl 60 MG CAPSULE.DR 1 CAP PO DAILY DEPRESSION (Reported) Hydrocodone/Acetaminophen ([place] 5-325 Tablet) 5 MG-325 MG TABLET 1 TAB PO Q4- 6 PRN PRN PAIN Hydrocodone/Acetaminophen ([place] 5-325 Tablet) 5 MG-325 MG TABLET 1 TAB PO Q4- 6 PRN PRN PAIN Hydrocodone/Acetaminophen ([place] 5-300 MG Tablet) 5 MG-300 MG TABLET 1 TAB PO Q6 PRN pain Ketorolac Tromethamine 10 MG TABLET 1 TAB PO TID PRN PAIN Meloxicam (Mobic) 7.5 MG TABLET 1 TAB PO DAILY pain Metoprolol Succinate 25 MG TAB 1 TAB PO TID HEART (Reported) Mometasone Furoate (Nasonex) 50 MCG SPRAY.PUMP 2 SPRAY NASB DAILY ALLERGIES ( Reported) Oxycodone HCl/Acetaminophen (Percocet 5-325 MG Tablet) 5 MG-325 MG TABLET 1-2 TAB PO BID PAIN Oxycodone HCl/Acetaminophen (Percocet 5-325 MG Tablet) 5 MG-325 MG TABLET 1-2 TAB PO 4 TIMES/DAY PRN pain Warfarin Sodium 5 MG TABLET 0.5 TAB PO 1700 BLOOD THINNER (Reported) Triage Note: C/O PAINFUL, RED LUMPS ON CHEST INCISION LINE, HAD CABG SURGERY 08/08. SAW PMD 10 DAYS, WAS NOT GIVEN RX. STATES IS WAS DRAINING A FEW DAYS AGO. Triage Nurses Notes Reviewed? yes Onset: Abrupt Duration: day(s):, constant Timing: recent history Severity: mild No Modifying Factors: none HPI: 50-year-old male comes into emergency room with reporting some pain over the incision site as well as some redness and some small amount of drainage. Patient had a valve replacement done back in August of this year. Open heart surgery. He denies any fever or chills. He has chronic back pain. He reports that he was doing fine on light duty at work but since they have released him back to full duty he is struggling with lifting. He comes in for further evaluation today of the incision site. Denies any other associated symptoms. (APOLLO MENDENHALL) Past History Travel History Traveled to [place] past 21 day No Medical History Any Pertinent Medical History? 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 No (APOLLO MENDENHALL) Review of Systems Review of Systems Constitutional: Reports: no symptoms. EENTM: Reports: no symptoms. Respiratory: Reports: no symptoms. Cardiovascular: Reports: no symptoms. GI: Reports: no symptoms. Genitourinary: Reports: no symptoms. Musculoskeletal: Reports: see HPI. Skin: Reports: see HPI. Neurological/Psychological: Reports: no symptoms. Hematologic/Endocrine: Reports: no symptoms. Immunologic/Allergic: Reports: no symptoms. All Other Systems: Reviewed and Negative (APOLLO MENDENHALL) Physical Exam Physical Exam General Appearance: well developed/nourished, mild distress Head: atraumatic Eyes: Bilateral: normal appearance. Ears, Nose, Throat: normal ENT inspection, hearing grossly normal Neck: normal inspection Respiratory: no respiratory distress Back: normal inspection Extremities: normal inspection, normal range of motion, no edema Neurologic/Psych: awake, alert, oriented x 3, normal mood/affect Skin: intact, small amount of erythema at base of incision site over the xiphoid process,no pus/white discharge, no warmth, Skin Problem Location: see above Lymphatic: no anterior cervical bebo (APOLLO MENDENHALL) Progress Differential Diagnosis: abscess/cellulitis, allergic reaction, anaphylaxis, contact dermatitis, drug reaction, chronic back pain Plan of Care: 11/04/2016 2:05:23 PM Patient clinically looks well. Nonseptic appearing. Patient started on Keflex. Minimal signs of infection. Instructed to follow up with cardiothoracic surgeon. Patient understands and agrees with plan of care. High suspicion for drug-seeking behavior looking for narcotics.. Patient told that he needs to see his primary cannot prescribe any narcotics here. (APOLLO MENDENHALL) Departure Departure Disposition: HOME OR SELF CARE Condition: Stable Clinical Impression Primary Impression: Superficial incisional infection of surgical site Referrals: ERIKA GRAJEDA,KRYSTYNA Carter (PCP/Family) Additional Instructions: Taking baclofen and Keflex as prescribed. Follow-up with her cardiothoracic surgeon on Sunday. Return if any concerns worsening symptoms. Please go over all results of today's visit with your primary care doctor. Contact your primary care doctor to let them know you were here in the emergency room. There may be nonspecific findings which may not be related to your visit today here in the emergency room but may require further evaluation and chronic monitoring by your primary care doctor. If you had a laceration today the chance of foreign body always remains. You should follow-up with your primary care doctor for recheck in 3-5 days for a wound check. If you had an x-ray done there is a chance that a fracture could have been missed on initial read and you should follow-up with your primary care doctor for repeat x-rays if symptoms persist. If your blood pressure was elevated here in the emergency room please have rechecked by her primary care doctor within the next 48 hours by your primary care doctor. If you were prescribed a narcotic here in the emergency room or any type of controlled substances you're not allowed to drive while taking this medication or operate any type of heavy machinery. Narcotics can make you feel lightheaded dizziness nausea and can cause constipation. You may need to pick up man a stool softener. Thank you for choosing [facility] emergency room. Please return to the emergency room immediately if you have any other concerns worsening of symptoms. Departure Forms: Customer Survey General Discharge Information Prescriptions: Current Visit Scripts Baclofen 1 TAB PO TID #15 TAB Cephalexin (Keflex) 1 CAP PO TID #21 CAP (APOLLO MENDENHALL) PA/HAIRSPRING I INSPECTOR Co-Sign Statement Statement: ED Attending supervision documentation- [] I saw and evaluated the patient. I have also reviewed all the pertinent lab results and diagnostic results. I agree with the findings and the plan of care as documented in the PA's/HAIRSPRING I INSPECTOR's documentation. [X] I have reviewed the ED Record and agree with the PA's/HAIRSPRING I INSPECTOR's documentation. [] Additions or exceptions (if any) to the PAs/HAIRSPRING I INSPECTOR's note and plan are summarized below: [] (ALVA GRAJEDA,AMILCAR)
== END 2016-11-04 12:51 ==
LOC: ERH 11:56
DX: T81.4XXA Infection following a procedure, initial encounter (principal)

== ENCOUNTER 2017-07-16 12:06 | Emergency (ER) | payer OTHER ==
[~2017-07-16] VITALS: Ht 172.7 cm; Wt 76.7 kg
[~2017-07-16 12:06] MED LIST changes: +AMOXICILLIN875 M1 PO; +ASPIRIN EC81 M1 PO; +CYCLOBENZAPRINE5 M2 PO; +ERYTHROMYCIN1 GM OPH; +KEFLEX500 M1 PO; +LIDOCAINE HCL V15 ML PO; +MOBIC15 M1 PO; +OXYCODONE HCL5 M2 PO
[2017-07-16 12:15] VITALS: BP 140/90
== END 2017-07-16 13:39 | disposition admitted as inpatient to this hospital (09) ==
LOC: ERH 12:06
DX: M54.5 Low back pain (principal)